=== PATIENT | female | born 1945 | race Caucasian/White ===

== ENCOUNTER 2017-11-14 19:11 | Emergency (ER) | payer BC ==
[2017-11-15] MEDS: ONDANSETRON 4 MG INJ IV (03:19)
[2017-11-15] MEDS: SOD CHLORIDE 0.9% 500 ML IV (03:20)
[2017-11-15] MEDS: morphine 4 MG/ML VIAL IV (03:20)
[2017-11-15 03:33] LABS: ADD MAN DIFF? NO
[2017-11-15 04:05] LABS: BASOPHILS % 0.3 % (0.0-2.0); HEMOGLOBIN 12.2 g/dl (12.0-16.0); LYMPHOCYTES # 2.2 10^3/ul (0.8-2.9); LYMPHOCYTES % 20.4 % (15.0-51.0); MEAN CORPUSCULAR HEMOGLOBIN 27.5 pg (29.0-33.0); MEAN CORPUSCULAR HGB CONC 33.9 g/dl (32.0-37.0); MEAN CORPUSCULAR VOLUME 81.3 fl (82.0-101.0); MEAN PLATELET VOLUME 9.6 fl (7.4-10.4); MONOCYTE # 0.9 10^3/ul (0.3-0.9); MONOCYTES % 8.4 % (0.0-11.0); NEUTROPHIL # 7.6 10^3/ul (1.6-7.5); NEUTROPHILS % 70.1 % (39.0-77.0); PLATELET COUNT 417 10^3/UL (140-415); RED BLOOD COUNT 4.43 10^6/ul (4.20-5.40); RED CELL DISTRIBUTION WIDTH 14.8 % (11.5-14.5)
[2017-11-15 04:05] LABS: WHITE BLOOD COUNT 10.8 10^3/ul (4.8-10.8)
[2017-11-15 04:06] LABS: PROTIME 14.4 Sec (11.9-14.9); PT RATIO 1.1
[2017-11-15 04:07] LABS: PARTIAL THROMBOPLASTIN TIME 30.5 Sec (25.0-35.0)
[2017-11-15 04:09] LABS: ALANINE AMINOTRANSFERASE 27 IU/L (13-69); ALBUMIN 4.1 g/dl (3.3-4.9); ALBUMIN/GLOBULIN RATIO 0.97; ALKALINE PHOSPHATASE 147 IU/L (42-121); ANION GAP 14 (8-16); ASPARTATE AMINO TRANSFERASE 45 IU/L (15-46); BILIRUBIN,INDIRECT 0.3 mg/dl (0-1.1); BILIRUBIN,TOTAL 0.3 mg/dl (0.2-1.3); BLOOD UREA NITROGEN 31 mg/dl (7-20); CALCIUM 9.9 mg/dl (8.4-10.2); CARBON DIOXIDE 31 mmol/L (21-31); CHLORIDE 98 mmol/L (97-110); CREATININE 1.23 mg/dl (0.44-1.00); GLUCOSE 141 mg/dl (70-220); LIPASE 493 U/L (23-300); POTASSIUM 3.4 mmol/L (3.5-5.1); SODIUM 140 mmol/L (135-144); TOTAL PROTEIN 8.3 g/dl (6.1-8.1)
[2017-11-15 04:25] LABS: TROPONIN-I < 0.012 ng/ml (0.00-0.12)
[2017-11-15 06:59] LABS: ADD UMIC YES; UR ASCORBIC ACID NEGATIVE (NEGATIVE); UR BILIRUBIN (Dip) NEGATIVE (NEGATIVE); UR BLOOD (Dip) 1+ mg/dL (NEGATIVE); UR CLARITY SLIGHTLY CLOUDY (CLEAR); UR COLOR AMBER (YELLOW); UR GLUCOSE (Dip) NEGATIVE (NEGATIVE); UR KETONES (Dip) TRACE mg/dL (NEGATIVE); UR LEUKOCYTE ESTERASE (Dip) NEGATIVE Leu/ul (NEGATIVE); UR MUCUS FEW /HPF (NONE SEEN); UR NITRITE (Dip) NEGATIVE (NEGATIVE); UR RBC 12 /HPF (0-5); UR SPECIFIC GRAVITY (Dip) 1.018 (1.003-1.030); UR SQUAMOUS EPITHELIAL CELL FEW /HPF (FEW); UR TOTAL PROTEIN (Dip) NEGATIVE (NEGATIVE); UR UROBILINOGEN (Dip) 2+ mg/dL (NEGATIVE); UR WBC 8 /HPF (0-5)
== END 2017-11-15 06:15 | disposition home or self-care (01) ==
LOC: E/R 19:11
DX: R10.9 Unspecified abdominal pain (principal); I10 Essential (primary) hypertension; R40.2252 Coma scale, best verbal response, oriented, at arrival to emergency department; R40.2362 Coma scale, best motor response, obeys commands, at arrival to emergency department; R40.2142 Coma scale, eyes open, spontaneous, at arrival to emergency department; Z79.82 Long term (current) use of aspirin
CPT/HCPCS: 36415; 71045; 74176; 80053; 81001; 83690; 84484; 85025; 85610; 85730; 93005; 96374; 96375; 99285-25

== ENCOUNTER 2017-11-16 11:38 | Emergency (ER) | payer BC ==
[2017-11-16] MEDS: SOD CHLORIDE 0.9% 1,000 ML IV (15:32)
[2017-11-16] MEDS ORDERED: HYDROmorphONE 1 MG/ML SYG (16:31)
[2017-11-16] MEDS ORDERED: ONDANSETRON 4 MG INJ (16:31)
[2017-11-16] MEDS: MINERAL OIL 133 ML ENEMA PR (16:33)
[2017-11-16] MEDS: MAGNESIUM CITRATE 300 ML BTL PO (16:36)
[2017-11-16] MEDS: ONDANSETRON 4 MG INJ IV (16:36)
[2017-11-16] MEDS: HYDROmorphONE 1 MG/ML SYG IV (16:36)
== END 2017-11-16 17:56 | disposition home or self-care (01) ==
LOC: E/R 11:38
DX: K59.00 Constipation, unspecified (principal); I10 Essential (primary) hypertension
CPT/HCPCS: 96374; 96375; 99284-25

== ENCOUNTER 2019-01-15 06:34 | Day surgery (SDC) | payer BC ==
[~2019-01-15 06:34] MED LIST: CEFAZOLIN 2 GM/50 ML (PMX) 50 ML IVPB; SOD CHLORIDE 0.9% 1,000 ML IV
[2019-01-15] MEDS ORDERED: LABETALOL HCL 20MG INJ IV (09:00)
[2019-01-15] MEDS ORDERED: DIPHENHYDRAMINE 50 MG INJ IV (09:00)
[2019-01-15] MEDS ORDERED: EPHEDrine SULFATE 50 MG/5 ML SYG IV (09:00)
[2019-01-15] MEDS ORDERED: FENTAnyl 50 MCG/ML VIAL IV (09:00)
[2019-01-15] MEDS ORDERED: OXYCODONE/ACETAMINOPHEN (5/325) TAB PO (09:00)
[2019-01-15] MEDS ORDERED: hydrALAzine 20 MG INJ IV (09:00)
[2019-01-15] MEDS ORDERED: FENTAnyl 50 MCG/ML VIAL (09:07)
[2019-01-15] MEDS ORDERED: PROPOFOL 20 ML (09:07)
[2019-01-15] MEDS ORDERED: ROCURONIUM 50 MG INJ (09:07)
[2019-01-15] MEDS ORDERED: SUCCINYLCHOLINE CHLORIDE 100 MG/5 ML SYG IV (09:07)
[2019-01-15] MEDS ORDERED: ROPIVACAINE 0.5 % 30 ML VIAL (09:07)
[2019-01-15] MEDS ORDERED: LIDOCAINE 2% (SDV) 5 ML INJ (09:07)
[2019-01-15] MEDS ORDERED: ONDANSETRON 4 MG INJ (09:30)
[2019-01-15] MEDS ORDERED: EPHEDrine SULFATE 50 MG/5 ML SYG (09:32)
[2019-01-15] MEDS: BUPIVACAINE 0.5% (SDV) 30 ML INJ (09:35)
[2019-01-15] MEDS ORDERED: NEOSTIGMINE 10 MG INJ (10:41)
[2019-01-15] MEDS ORDERED: GLYCOPYRROLATE 0.4 MG INJ (10:41)
[2019-01-15] MEDS ORDERED: SUGAMMADEX SODIUM 200 MG/2 ML VIAL IV (10:49)
[2019-01-15] MEDS ORDERED: hydrALAzine 20 MG INJ (10:52)
[2019-01-15] MEDS ORDERED: HYDROCODONE/APAP (5/325) TAB PO ×2 (11:00)
[2019-01-15] MEDS ORDERED: morphine 2 MG INJ IV (11:00)
[2019-01-15] MEDS ORDERED: ONDANSETRON 4 MG INJ IV (11:00)
[2019-01-15] MEDS: HYDROmorphONE 1 MG/5 ML IV SYRINGE IV ×3 (11:01→11:22)
[2019-01-15] MEDS: ONDANSETRON 4 MG INJ IV (11:02)
[2019-01-15] MEDS: MEPERIDINE 25 MG INJ IV (11:02)
== END 2019-01-15 14:10 | disposition home or self-care (01) ==
LOC: SDS 06:34
DX: K80.10 Calculus of gallbladder with chronic cholecystitis without obstruction (principal); I10 Essential (primary) hypertension; E11.9 Type 2 diabetes mellitus without complications; E78.5 Hyperlipidemia, unspecified
CPT/HCPCS: 47562; 82962; 88304